=== PATIENT | male | born 1955 | race Caucasian/White ===

== ENCOUNTER 2016-11-16 06:46 | Day surgery (SDC) | payer BC ==
[2016-11-16] MEDS ORDERED: LIDOCAINE HCL 1% MPF SOL ONE (07:23)
[2016-11-16] MEDS ORDERED: PROPOFOL 500 MG/50 ML EMU IV ONE (07:23)
[2016-11-16 08:35] VITALS: TEMP 97.6
[2016-11-16 08:58] VITALS: RESP 18
[2016-11-16 09:04] VITALS: BP 110/71; PULSE 71; O2SAT 96
== END 2016-11-16 09:30 | disposition home or self-care (01) ==
LOC: SURG 06:46
PROVIDERS: ATTEND Internal Medicine Gastroenterology
DX: R10.13 Epigastric pain (principal); K21.9 Gastro-esophageal reflux disease without esophagitis; R13.10 Dysphagia, unspecified; K22.70 Barrett's esophagus without dysplasia; K44.9 Diaphragmatic hernia without obstruction or gangrene; K31.9 Disease of stomach and duodenum, unspecified
CPT/HCPCS: 43239; 99001; J2001; J2704